=== PATIENT | male | born 1970 | race Caucasian/White ===

== ENCOUNTER → 2017-10-17 | Outpatient (CLI) | payer OTHER | LOC: FCPNEURO 21:30 | PROVIDERS: ATTEND Student in an Organized Health Care Education/Training Program | DX: G47.33 Obstructive sleep apnea (adult) (pediatric) (principal) ==

== ENCOUNTER 2018-02-05 09:20 | Emergency (ER) | payer OTHER ==
[2018-02-05 09:34] VITALS: BP 140/86
--- NOTE | 2018-02-05 09:45 | EDPHY ---
H & P Stated Complaint: rt shoulder injury Time Seen by Provider: 02/05/18 09:21 HPI/ROS: 47 yo M presents c/o fall while down hill skiing yesterday, now with right ac pain. He has a prior history of bilateral rotator cuff repair. Review of systems As per HPI General no fever no chills no weakness HEENT no eye pain no eye discharge. No eye redness, no sore throat Respiratory no cough, no shortness of breath Cardiac no chest pain, no peripheral edema GI no abdominal pain, no diarrhea, no constipation, no nausea, no vomiting no flank pain, no hematuria, no dysuria Musculoskeletal no myalgias, positive joint pain Heme no easy bruising, no easy bleeding Endo no polyuria, no polydipsia Skin no rashes, no pruritus Neuro no syncope, no dizziness, no headaches Psych is no suicidal ideation, no homicidal ideation Source: Patient Exam Limitations: No limitations - Personal History Current Tetanus Diphtheria and Acellular Pertussis (TDAP): Yes - Medical/Surgical History Hx Asthma: No Hx Chronic Respiratory Disease: No Hx Diabetes: No Hx Cardiac Disease: No Hx Renal Disease: No Hx Cirrhosis: No Hx Alcoholism: No Hx HIV/AIDS: No Hx Splenectomy or Spleen Trauma: No Other PMH: APPY,ORTHO, - Family History Significant Family History: No pertinent family hx - Social History Smoking Status: Never smoked Alcohol Use: Occasionally Drug Use: None - Physical Exam Exam: 47 yo M alert and oriented in nad non toxic appearance at,nc neck supple, no midline ttp, from lungs cta bilat heart rrr right shoulder with from, ttp at AC joint, no obvious swelling or ecchymoses good distal pulses, sensation intact Constitutional: Initial Vital Signs Temperature (C) 37.0 C 02/05/18 09:30 Heart Rate 62 02/05/18 09:30 Respiratory Rate 18 02/05/18 09:30 Blood Pressure 140/86 H 02/05/18 09:30 O2 Sat (%) 97 02/05/18 09:30 O2 Delivery Mode Room Air Allergies/Adverse Reactions: amoxicillin trihydrate [From Augmentin] Allergy (Verified 02/05/18 09:28) Penicillins Allergy (Verified 02/05/18 09:28) potassium clavula *RETIRED-10/23/11 [From Augmentin] Allergy (Verified 02/05/18 09:28) Home Medications: Medication Instructions Recorded Cholecalciferol (Vitamin D3) 2,000 unit PO DAILY 03/28/12 [Vitamin D] Levothyroxine [Synthroid 88 mcg 88 mcg PO DAILY06 03/28/12 (RX)] Pharmacy Complete 03/28/12 03/28/12 Vitamin B Complex [Vitamin B 1 each PO DAILY 03/28/12 Complex (OTC)] Medical Decision Making - Diagnostics Imaging Results: Imaging Impressions Shoulder X-Ray 02/05/18 09:40 Impression: 1. No acute osseous abnormality seen about the right shoulder. 2. Subchondral cyst superolateral margin of the humeral head possibly related to rotator cuff tendon insertion. 3. Metal clamp anterior humeral head from previous surgery. ED Course/Re-evaluation: Patient seen and evaluated for right shoulder injury while skiing. X-ray Negative for fracture negative for dislocation Likely AC separation Old hardware present Impression Right AC sprain Plan Sling, rest, ice, elevation Ibuprofen ord for pain Differential Diagnosis: Differential diagnosis considered but not limited to: Shoulder dislocation, humeral head fracture, clavicle fracture, AC separation, right shoulder sprain, bursitis Departure - Departure Disposition: Home, Routine, Self-Care Clinical Impression: Separation of right acromioclavicular joint Condition: Good Instructions: Acromioclavicular Separation (ED) Additional Instructions: rest, ice f/u ortho if not improving Referrals: Gauri Kohli [Primary Care Provider] - As per Instructions
== END 2018-02-05 10:00 | disposition home or self-care (01) ==
LOC: CED 09:20
DX: S43.004A Unspecified dislocation of right shoulder joint, initial encounter (principal); V00.311A Fall from snowboard, initial encounter; Y93.23 Activity, snow (alpine) (downhill) skiing, snowboarding, sledding, tobogganing and snow tubing; Z98.890 Other specified postprocedural states
CPT/HCPCS: 73030-PO; A4565-ER